=== PATIENT | female | born 1990 | race Hispanic/Latino ===

== ENCOUNTER 2020-02-26 12:35 | Emergency (ER) | payer MEDICAID ==
[2020-02-26] MEDS ORDERED: SODIUM CHLORIDE 0.9% 1000 ML 1,000 ML IV ONE (13:00)
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
[2020-02-26] MEDS ORDERED: LORazepam 2 MG/ML VIAL ONE (14:10)
[2020-02-26] MEDS ORDERED: ZIPRASIDONE MESYLATE 20 MG VIAL IM ONE ×2 (14:13→14:45)
[2020-02-26] MEDS ORDERED: WATER FOR INJ Sterile (PF) 10 ML ONE (14:13)
[2020-02-26] MEDS ORDERED: LORazepam 2 MG/ML VIAL IV ONE (14:40)
--- NOTE | 2020-02-26 15:17 | Ultrasound Report ---
ULTRASOUND OBSTETRIC INDICATION / CLINICAL INFORMATION: Vaginal bleeding. TECHNIQUE: Transabdominal. COMPARISON: None available. FINDINGS: GESTATIONAL SAC: Well-defined oval shape and intrauterine in location. YOLK SAC: No significant abnormality. EMBRYO/FETUS: No significant abnormality. - Suncrest-Rump Length = 7.5 cm = 13 weeks, 2 day(s). - Heart Rate, beats per minute (if present) = 171 ADNEXA: No significant abnormality. FREE FLUID: None. ADDITIONAL FINDINGS: None. IMPRESSION: 1. Single, living intrauterine with estimated sonographic age of 13 weeks, 2 day(s). Signer Name: Marcelo Azevedo MD Signed: 02/26/2020 3:13 PM Workstation Name: [id number]
[2020-02-26 16:14] LABS: Basophils % (Auto) 0.2 % (0.0-1.8); Eosinophils % (Auto) 0.4 % (0.0-4.3); Hematocrit 33.2 % (30.3-42.9); Hemoglobin 10.5 gm/dl (10.1-14.3); Lymphocytes # (Auto) 1.6 K/mm3 (1.2-5.4); Lymphocytes % (Auto) 22.9 % (13.4-35.0); Mean Corpuscular HGB Conc 32 % (30-34); Mean Corpuscular Volume 73 fl (79-97); Monocytes # (Auto) 0.4 K/mm3 (0.0-0.8); Monocytes % (Auto) 5.8 % (0.0-7.3); Platelet Count 245 K/mm3 (140-440); Red Blood Count 4.57 M/mm3 (3.65-5.03); Red Cell Distribution Width 14.9 % (13.2-15.2)
[2020-02-26 16:25] LABS: INR 1.04 (0.87-1.13)
[2020-02-26 16:33] LABS: BUN/Creatinine Ratio 23; Blood Urea Nitrogen 9 mg/dL (7-17); Calcium 8.2 mg/dL (8.4-10.2); Hemolysis Index 3
[2020-02-26 20:17] LABS: Bilirubin,Urine NEG (Negative); Blood,Urine NEG (Negative); Color,Urine Yellow (Yellow); Mucus,Urine FEW /HPF; Protein,Urine <15 mg/dL mg/dL (Negative); RBC,Urine < 1.0 /HPF (0.0-6.0); Urobilinogen,Urine < 2.0 mg/dL (<2.0)
[2020-02-26 20:22] LABS: Amphetamine Screen,Urine PRESUMPTIVE NEGATIVE; Benzodiazepines Screen,Urine PRESUMPTIVE NEGATIVE; Methadone Screen,Urine PRESUMPTIVE NEGATIVE; Opiate Screen,Urine PRESUMPTIVE NEGATIVE
[2020-02-26 20:26] LABS: WBC,Urine < 1.0 /HPF (0.0-6.0)
[2020-02-26 20:34] LABS: Cannabinoid Screen,Urine PRESUMPTIVE POSITIVE; Cocaine Screen,Urine PRESUMPTIVE POSITIVE
--- NOTE | 2020-02-27 11:58 | Consultation ---
History of Present Illness - Reason for Consult Consult date: 02/27/20 Reason for consult: psychosis - History of Present Psychiatric Illness Alfredo Gates is a 29y/o female patient who states she was brought to the hospital because her "side was hurting." During my interview with the patient, she is a/o x 3. She makes poor eye contact. Her affect is flat. She denies SI/HI, but states, "yesterday I was." She also states, "I was seeing small dots and bugs all over me. I couldn't take it." The patient verbalizes at present hearing voices, "telling me to go outside, go outside." She verbalizes being "depressed." She denies illicit drug use, despite being positive for cocaine and THC. The patient says she has a history of "biplor, and ADHD." She says she takes "zoloft, seroquel and adderall." The patient asks me, "can you find out why I'm having so much discharge." Advised the patient to inform her nurse. The patient denies past suicidal attempts. She says she's been admitted into the hospital for psychiatric related conditions "about twice." PAST PSYCHIATRIC HISTORY Diagnoses: Bipolar, ADHD Suicide attempts or Self-harm behavior: Denies Prior psychiatric hospitalizations: "Twice" Substance Abuse history: Denies, but UDS cocaine, thc Previous psychiatric medications tried: Zoloft, seroquel, and adderall Outpatient treatment: Yes SOCIAL HISTORY Marital Status: Single Living Arrangements: With mom Employment Status: Unemployed Access to guns/weapons: Denies Education: 12th grade History of abuse: Drug abuse Legal History: Denies ROS Constitutional: Negative for weight loss EMT: Negative for stridor Respiratory: Negative for cough or hemoptysis All other systems reviewed and are negative MENTAL STATUS EXAMINATION General Appearance: Dressed appropriately. Behavior: Calm and cooperative Mood: "Depressed" Affect: Flat Speech: Normal tone and pace Thought Process: Goal oriented Suicidal Ideation: Denies Homicidal Ideation: Denies Hallucinations: Auditory Delusions: None elicited Insight and Judgment: Limited Memory/Cognition: Limited Assessment and Plan Bipolar Disorder, Severe, w/Psychotic Features Substance Induced Mood Disorder RECOMMENDATIONS MEDICATIONS Seroquel 50mg po BID Trazodone 50mg po qhs Zoloft 25mg po daily Geodon 10mgm IM q4h prn agitation Risks, benefits and alternatives of medications discussed with the patient, questions answered and consent obtained from patient. PSYCHOTHERAPY: Supportive psychotherapy provided MEDICAL: Per primary team DELIRIUM PRECAUTIONS: Please re-orient patient frequently, keep lights on during the day, and minimize benzodiazepines and opiates as these medications could worsen patient's confusion. 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 The patient may transfer to an acute psychiatric facility once medically clear. FOLLOW-UP: Will follow until transferred or the patient improves enough for discharge Thank you for the consult. Please contact with any questions and/or concerns. Medications and Allergies Allergies Allergy/AdvReac Type Severity Reaction Status Date / Time No Known Allergies Allergy Unverified 02/26/20 20:07 Home Medications Medication Instructions Recorded Confirmed Last Taken Type Adderall 02/26/20 Unknown History SEROquel 02/26/20 Unknown History Zoloft 02/26/20 Unknown History Mental Status Exam - Vital signs Last Vital Signs Temp 99 F 02/27/20 02:00 Pulse 72 02/27/20 02:00 Resp 16 02/27/20 02:00 BP 102/57 02/27/20 02:00 Pulse Ox 99 02/27/20 02:00 Results Result Diagrams: 02/26/20 16:01 02/26/20 16:01 Abnormal lab results 02/26/20 02/26/20 02/26/20 Range/Units 16:01 16:01 16:01 MCV 73 L (79-97) fl MCH 23 L (28-32) pg Seg Neutrophils % 70.7 H (40.0-70.0) % Potassium 3.4 L (3.6-5.0) mmol/L Chloride 109.1 H (98-107) mmol/L Carbon Dioxide 15 L (22-30) mmol/L Creatinine 0.4 L (0.7-1.2) mg/dL Calcium 8.2 L (8.4-10.2) mg/dL HCG, Quant 52163 H (0-4) mIU/mL Salicylates (2.8-20.0) mg/dL Acetaminophen (10.0-30.0) ug/mL Plasma/Serum Alcohol (0-0.07) % 02/26/20 02/26/20 02/26/20 Range/Units 16:01 16:01 16:01 MCV (79-97) fl MCH (28-32) pg Seg Neutrophils % (40.0-70.0) % Potassium (3.6-5.0) mmol/L Chloride (98-107) mmol/L Carbon Dioxide (22-30) mmol/L Creatinine (0.7-1.2) mg/dL Calcium (8.4-10.2) mg/dL HCG, Quant (0-4) mIU/mL Salicylates < 0.3 L (2.8-20.0) mg/dL Acetaminophen < 5.0 L (10.0-30.0) ug/mL Plasma/Serum Alcohol 0.15 H (0-0.07) % All other labs normal.
[2020-02-27] MEDS ORDERED: ZIPRASIDONE MESYLATE 20 MG VIAL IM PRN (12:30)
[2020-02-27] MEDS ORDERED: SERTRALINE 25 MG TAB PO SCH (13:00)
[2020-02-27] MEDS: QUEtiapine 25 MG TAB PO SCH ×2 (15:11→23:39)
[2020-02-27] MEDS: SERTRALINE 25 MG TAB PO SCH (15:12)
[2020-02-27] MEDS ORDERED: ACETAMINOPHEN 325 MG TAB PO ONE (20:12)
[2020-02-27] MEDS ORDERED: traZODone 50 MG TAB PO SCH (22:00)
[2020-02-28 08:44] VITALS: BP 96/49
[2020-02-28] MEDS: QUEtiapine 25 MG TAB PO SCH (09:40)
[2020-02-28] MEDS: SERTRALINE 25 MG TAB PO SCH (09:40)
--- NOTE | 2020-02-28 12:53 | Progress Note ---
Subjective - Reason for Consult Consult date: 02/28/20 Reason for consult: psychosis - Chief Complaint Chief complaint: During my interview with the patient she is lying in bed, awake. She is a/o x 3. She makes good eye contact. She is calm and cooperative. The patient denies SI/HI or any feelings of endangerment, or any passive thoughts of dying. She also denies hallucinations of any kind. The patient says her moods is "good." She states, "I feel better today." She then says, "but I'm still having this discharge. Can you tell them to give me something." The patient is asking me about being able to go home. The patient says she slept "good." Advised the patient about her cocaine use. The patient replied, "I think that's what had me feeling like this." She says her appetite is "so-so." Informed the nurse of the patient's concern about the vag discharge. She says the ER doc was aware. ROS Constitutional: Negative for weight loss EMT: Negative for stridor Respiratory: Negative for cough or hemoptysis All other systems reviewed and are negative MENTAL STATUS EXAMINATION General Appearance: Dressed appropriately. Behavior: Calm and cooperative Mood: "good" Affect: Restricted Speech: Normal tone and pace Thought Process: Goal oriented Suicidal Ideation: Denies Homicidal Ideation: Denies Hallucinations: Denies Delusions: None elicited Insight and Judgment: Limited Memory/Cognition: Limited Assessment and Plan Bipolar Disorder, Severe, w/Psychotic Features Substance Induced Mood Disorder RECOMMENDATIONS D/c 1013 MEDICATIONS Seroquel 50mg po BID Trazodone 50mg po qhs Zoloft 25mg po daily Risks, benefits and alternatives of medications discussed with the patient, questions answered and consent obtained from patient. PSYCHOTHERAPY: Supportive psychotherapy provided MEDICAL: Per primary team DELIRIUM PRECAUTIONS: Please re-orient patient frequently, keep lights on during the day, and minimize benzodiazepines and opiates as these medications could worsen patient's confusion. HEAD OF MEASUREMENT & INSIGHTS: Per medical team DISPOSITION: The patient does not meet the requirement for acute inpatient psychiatric treatment. She may discharge home once medically clear. The patient has consistently denies SI/HI or any thoughts of self harm or fear of endangerment. She verbalizes understanding that if SI/HI or feelings of self harm are to return he is to seek immediate assistance including, but not limited to the crisis hotline, 911 or/and ER. The assess is to further implement safety plan with patient, and give her resources for outpatient services, including cognitive behavior therapy and drug rehabilitation. The patient is to follow up with outpatient psychiatry or primary in 7 to 14 days upon discharge. Will sign off. Thank you for the consult. Please contact with any questions and/or concerns. Mental Status Exam - Vital signs Last Vital Signs Temp 98.4 F 02/28/20 08:43 Pulse 63 02/28/20 08:43 Resp 16 02/28/20 08:43 BP 96/49 02/28/20 08:43 Pulse Ox 99 02/28/20 08:43
== END 2020-02-28 14:43 | disposition home or self-care (01) ==
LOC: ED 12:35
DX: O99.341 Other mental disorders complicating pregnancy, first trimester (principal); F53.1 Puerperal psychosis; F10.10 Alcohol abuse, uncomplicated; Z3A.13 13 weeks gestation of pregnancy; Z79.899 Other long term (current) drug therapy
CPT/HCPCS: 36415; 76801; 80048; 80307; 81001; 84702; 85025; 85610; 85730; 86900; 86901; 96372; 99285; J2060; J3486; J7030; 80320; G0480